=== PATIENT | male | born 1985 | race Caucasian/White ===

== ENCOUNTER 2018-10-30 00:44 | Inpatient (IN) | payer OTHER ==
[2018-10-30] VITALS (7 sets, daily range): BP systolic 105–144; BP diastolic 61–90
[~2018-10-30] VITALS: Ht 177.8 cm; Wt 108.9 kg
--- NOTE | 2018-10-30 01:30 | NUR ---
ER Nurse Note: Pt came from home c/o pain in the chest to the stomach area. Pt stated this started last night; unk onset. Pain feels sharp and stabbing, 8/10 pain. Pt currently moaning due to pain. S1 and S2 heard, lung sounds clear in all lobes. Pt a&ox4, VSS. ERMD at pt side[facility]
[2018-10-30] MEDS ORDERED: Morphine Sulfate 4mg/ml Inj (IV/IM USE ONLY) IVP ONE ×2 (01:45→02:45)
[2018-10-30] MEDS ORDERED: Pantoprazole Inj IV ONE (01:45)
--- NOTE | 2018-10-30 01:54 | Emergency Room Report ---
History of Present Illness General Chief Complaint: Chest Pain Source: Patient Present Illness HPI This is a 32-year-old male with no past medical history. He does have a family history of gallstone and his mom. He presents with epigastric and right upper quadrant pain. Onset for 3 and half hours. Pain is sharp. No radiation to his back. No fever chills. Nausea and vomiting. No diarrhea. Never had this problem before. Pain is 8 out of 10. Nothing made it better. Nothing made it worse. Allergies: Coded Allergies: No Known Allergies (Unverified , 10/30/18) Patient History Past Medical History: none, see triage record, old chart reviewed Past Surgical History: none Pertinent Family History: none Social History: Denies: smoking Immunizations: other Reviewed Nursing Documentation: PMH: Agreed; PSxH: Agreed Nursing Documentation-PMH Hx Hypertension: Yes Hx Diabetes: Yes Review of Systems Eye: Denies: eye pain, blurred vision ENT: Denies: ear pain, nose congestion, throat swelling Respiratory: Denies: cough, shortness of breath Cardiovascular: Denies: chest pain, palpitations Gastrointestinal: Reports: abdominal pain; Denies: diarrhea, nausea, vomiting Musculoskeletal: Denies: back pain, joint pain Skin: Denies: rash Neurological: Denies: headache, numbness Endocrine: Denies: increased thirst, increased urine Hematologic/Lymphatic: Denies: easy bruising All Other Systems: negative except mentioned in HPI Physical Exam Vital Signs Date Time Temp Pulse Resp B/P (MAP) Pulse Ox O2 Delivery O2 Flow Rate FiO2 10/30/18 00:59 97.9 82 22 139/89 98 Room Air vitals normal Sp02 EP Interpretation: reviewed, normal General Appearance: well appearing, no apparent distress, alert Head: normocephalic, atraumatic Eyes: bilateral eye PERRL, bilateral eye EOMI ENT: hearing grossly normal, normal pharynx Neck: full range of motion, supple, no meningismus Respiratory: chest non-tender, lungs clear, normal breath sounds Cardiovascular #1: regular rate, rhythm, no murmur Gastrointestinal: normal bowel sounds, non tender, no mass, no organomegaly, no bruit, non-distended, tenderness - Epigastric and right upper quadrant tenderness Musculoskeletal: back normal, gait/station normal, normal range of motion Psychiatric: mood/affect normal Skin: warm/dry Medical Decision Making Diagnostic Impression: Primary Impression: Cholelithiases Qualified Codes: K80.20 - Calculus of gallbladder without cholecystitis without obstruction Additional Impression: Intractable abdominal pain ER Course Patient presents with epigastric and right upper quadrant pain. CT showed multiple gallstones. No evidence of obstruction, kidney stones or appendicitis. Patient required multiple doses of IV pain medication. He still in some pain. Because of the intractable pain, will admit for surgical consultation. I discussed the case with Dr. Amaya who will admit. Lab Results Impression labs unremarkable EKG Diagnostic Results Rate: normal Rhythm: NSR ST Segments: no acute changes ASA given to the pt in ED: No Rhythm Strip Diag. Results EP Interpretation: yes Rate: 88 Rhythm: NSR, no PVC's, no ectopy CT/MRI/US Diagnostic Results CT/MRI/US Diagnostic Results : Imaging Test Ordered: CT abdomen and pelvis Impression Read by radiologist. Gallstones. Diverticulosis. Normal appendix. Last Vital Signs Date Time Temp Pulse Resp B/P (MAP) Pulse Ox O2 Delivery O2 Flow Rate FiO2 10/30/18 00:59 97.9 82 22 139/89 98 Room Air Status: improved Disposition: ADMITTED INPATIENT Condition: Serious Abram Buckley MD Oct 30, 2018 01:54
[2018-10-30 02:01] LABS: APPEARANCE,URINE CLEAR; BILIRUBIN, URINE NEGATIVE (NEGATIVE); GLUCOSE, URINE (UA) NEGATIVE (NEGATIVE); KETONES,URINE NEGATIVE (NEGATIVE); LEUKOCYTE ESTERASE ,URINE NEGATIVE (NEGATIVE); NITRITE,URINE NEGATIVE (NEGATIVE); PH,URINE 6 (4.5-8.0); PROTEIN,URINE NEGATIVE (NEGATIVE); UROBILINOGEN,URINE NORMAL MG/DL (0.0-1.0)
[2018-10-30 02:02] LABS: COLOR,URINE YELLOW
[2018-10-30 02:04] LABS: BASOPHILS % (AUTO) 0.9 % (0.0-2.0); EOSINOPHILS % (AUTO) 1.2 % (0.0-3.0); HEMATOCRIT 43.9 % (42.0-52.0); LYMPHOCYTES % (AUTO) 34.4 % (20.0-45.0); MEAN CORPUSCULAR VOLUME 87 FL (80-99); NEUTROPHILS % (AUTO) 57.4 % (45.0-75.0); PLATELET COUNT 234 K/UL (150-450); RED BLOOD COUNT 5.03 M/UL (4.70-6.10); RED CELL DISTRIBUTION WIDTH 10.2 % (11.6-14.8); WHITE BLOOD COUNT 9.3 K/UL (4.8-10.8)
[2018-10-30 02:21] LABS: ANION GAP 11 mmol/L (5-15); BLOOD UREA NITROGEN 21 mg/dL (7-18); CALCIUM 9.6 MG/DL (8.5-10.1); CARBON DIOXIDE 26 MMOL/L (21-32); CHLORIDE 100 MMOL/L (98-107); POTASSIUM 3.6 MMOL/L (3.5-5.1); SODIUM 137 MMOL/L (136-145)
[2018-10-30 02:28] LABS: ALANINE AMINOTRANSFERASE 34 U/L (12-78); ALBUMIN 4.1 G/DL (3.4-5.0); ALBUMIN/GLOBULIN RATIO 1.2 (1.0-2.7); ALKALINE PHOSPHATASE 46 U/L (46-116); ASPARTATE AMINO TRANSFERASE 13 U/L (15-37); BILIRUBIN,TOTAL 0.7 MG/DL (0.2-1.0)
--- NOTE | 2018-10-30 02:30 | NUR ---
ER Nurse Note: All orders completed per ERMD orders. Awaiting radiology and lab results. Pain meds given, tolerated well. No signs of distress, VSS. Will continue to [facility]
[2018-10-30] MEDS ORDERED: HYDROmorphone 1mg/ml Carpuject IVP ONE (03:15)
[2018-10-30] MEDS ORDERED: Ketorolac 30mg Inj IV ONE (03:15)
--- NOTE | 2018-10-30 04:09 | NUR ---
ED Nurse Note: covering pt for nurse lilli, pt on bed, complaining of 4/10 pain. pt stated the pain got better after the pain meds. pt friend on bedside. pt hooked on monitor with vitals sign within normAL limit. will continue to monitor.
--- NOTE | 2018-10-30 05:23 | NUR ---
ER Nurse Note: Report given to FARHAN Espinoza in [place] for continuity of care. Pt a&ox4, VSS, no signs of distress. Pt complains about mild pain but says it is tolerable currently. Pt left with all belongings.
[2018-10-30] MEDS ORDERED: ALPRAZolam 0.5mg tab ORAL PRN ×2 (06:15→07:15)
[2018-10-30] MEDS ORDERED: metFORMIN 500mg tab ORAL SCH (06:30)
[2018-10-30] MEDS ORDERED: METFORMIN HCL500 M1 ORAL (06:32)
[2018-10-30] MEDS ORDERED: ACTOS30 MG ORAL (06:32)
[2018-10-30] MEDS ORDERED: XANAX0.5 MG ORAL (06:32)
[2018-10-30] MEDS ORDERED: TRUVADA 200 MG1 EAC1 ORAL (06:32)
[2018-10-30] MEDS ORDERED: LOSARTAN POTAS100 MG ORAL (06:32)
--- NOTE | 2018-10-30 07:30 | NUR ---
NURSE NOTES: Received report from Julieta REAL. On rounds patient is awake alert and oriented x4, no s/s acute distress noted. Reporting abdominal pain, will medicate per order. LFA IV intact and asymptomatic. Side rails upx2, bed low and locked, call light in reach. Will continue to monitor.
[2018-10-30] MEDS ORDERED: Losartan 50mg tab ORAL SCH ×2 (09:00)
--- NOTE | 2018-10-30 09:28 | NUR ---
NURSE NOTES: Received hold parameters for Losartan from Dr. Amaya. Did not administer Losartan this morning due to parameters out of range, systolic BP <110. Order entered. Will continue to monitor.
[2018-10-30] MEDS: metFORMIN 500mg tab ORAL SCH ×2 (09:34→17:23)
[2018-10-30] MEDS: NovoLOG Insulin Flexpen SUBQ SCH ×3 (11:30→20:29)
--- NOTE | 2018-10-30 11:36 | Consultation ---
History of Present Illness General Date patient seen: Oct 30, 2018 Chief Complaint: Chest Pain Reason for Consultation: cholecytitis Present Illness HPI 32 year old otherwise healthy male presented to ED with complaints of acute onset epigastric abdominal pain. 8/10 sharp epigastric pain with radiation to back. +nausea +emesis. no fever or chills. was attempting to go to sleep when pain began. no prior episodes. in ED noted to have abd pain, labs okay, CT with cholelithiasis. surgery called to evaluate for cholecystitis. patient seen, chart reviewed, patient examined. states mildly better today. currently no n/v/f/c. pending ultrasound. Allergies: Coded Allergies: No Known Allergies (Unverified , 10/30/18) Medication History Scheduled Emtricitabine/Tenofovir 200-300MG* (Truvada 200-300MG*), 1 TAB ORAL DAILY, ( Reported) Losartan Potassium (Losartan Potassium), 100 MG ORAL DAILY, (Reported) Metformin Hcl* (Metformin Hcl*), 500 MG ORAL TWICE A DAY, (Reported) Pioglitazone Hcl* (Actos*), 30 MG ORAL DAILY, (Reported) Scheduled PRN Alprazolam* (Xanax*), 0.5 MG ORAL TID PRN for PRN Agitation/Anxiety, (Reported) Patient History History Provided By: Patient, Medical Record, PMD Healthcare decision maker Resuscitation status Advanced Directive on File Past Medical/Surgical History Past Medical/Surgical History: (1) Cholelithiases (2) Intractable abdominal pain Review of Systems Constitutional: Denies: no symptoms, see HPI, chills, sweats, fever, malaise, weakness, other Eye: Denies: no symptoms, see HPI, eye pain, blurred vision, tearing, double vision, nose pain, nose congestion, acuity changes, discharge, other ENT: Denies: no symptoms, see HPI, ear pain, ear discharge, nose pain, nose congestion, throat pain, throat swelling, mouth pain, hearing loss, nasal discharge, other Respiratory: Denies: no symptoms, see HPI, cough, orthopnea, shortness of breath, stridor, wheezing, PHILLIPS, sputum, other Cardiovascular: Denies: no symptoms, see HPI, chest pain, edema, palpitations, syncope, PND, other Gastrointestinal: Reports: abdominal pain, nausea, vomiting Genitourinary: Denies: no symptoms, see HPI, discharge, dysuria, frequency, hematuria, pain, retention, incontinence, urgency, vag bleed/dc, other Musculoskeletal: Denies: no symptoms, see HPI, back pain, gout, joint pain, joint swelling, muscle pain, muscle stiffness, other Skin: Denies: no symptoms, see HPI, rash, change in color, change in hair/nails , dryness, lesions, other Psychiatric: Denies: no symptoms, see HPI, prior hx, anxiety, depressed feelings, emotional problems, SI, HI, hallucinations, other Neurological: Denies: no symptoms, see HPI, headache, numbness, paresthesia, seizure, tingling, tremors, focal weakness, syncope, dizziness, other Endocrine: Denies: no symptoms, see HPI, excessive sweating, flushing, intolerance to temperature, increased thirst, increased urine, unexplained weight loss, other Hematologic/Lymphatic: Denies: no symptoms, see HPI, anemia, blood clots, easy bleeding, easy bruising, swollen glands, diathesis, other Physical Exam General Appearance: no apparent distress, alert Lines, tubes and drains: peripheral HEENT: mucous membranes moist, PERRL Neck: supple, normal inspection Respiratory/Chest: normal breath sounds, no respiratory distress, no accessory muscle use Cardiovascular/Chest: normal rate, regular rhythm Abdomen: normal bowel sounds, soft, no organomegaly, no mass, guarding, tender Extremities: normal inspection Skin Exam: warm/dry Neurologic: alert, oriented x 3 Last 24 Hour Vital Signs Date Time Temp Pulse Resp B/P (MAP) Pulse Ox O2 Delivery O2 Flow Rate FiO2 10/30/18 09:01 98.2 10/30/18 09:00 Room Air 10/30/18 08:00 98.2 83 18 105/61 (76) 98 10/30/18 06:06 Room Air 10/30/18 05:25 97.9 87 14 129/76 99 Room Air 10/30/18 05:21 97.9 87 14 129/76 99 Room Air 10/30/18 04:07 98.0 80 12 130/75 100 Room Air 10/30/18 03:49 97.8 10/30/18 03:48 97.8 10/30/18 03:48 97.8 10/30/18 02:32 97.8 10/30/18 01:30 98.0 84 24 144/90 98 Room Air 10/30/18 01:05 82 22 Room Air 10/30/18 00:59 97.9 82 22 139/89 98 Room Air Intake and Output 10/29/18 10/30/18 19:00 07:00 Intake Total 1000 ml Balance 1000 ml Intake IV Total 1000 ml # Voids 1 Laboratory Tests Test 10/30/18 01:40 White Blood Count 9.3 K/UL (4.8-10.8) Red Blood Count 5.03 M/UL (4.70-6.10) Hemoglobin 16.0 G/DL (14.2-18.0) Hematocrit 43.9 % (42.0-52.0) Mean Corpuscular Volume 87 FL (80-99) Mean Corpuscular Hemoglobin 31.8 PG (27.0-31.0) H Mean Corpuscular Hemoglobin Concent 36.3 G/DL (32.0-36.0) H Red Cell Distribution Width 10.2 % (11.6-14.8) L Platelet Count 234 K/UL (150-450) Mean Platelet Volume 6.3 FL (6.5-10.1) L Neutrophils (%) (Auto) 57.4 % (45.0-75.0) Lymphocytes (%) (Auto) 34.4 % (20.0-45.0) Monocytes (%) (Auto) 6.0 % (1.0-10.0) Eosinophils (%) (Auto) 1.2 % (0.0-3.0) Basophils (%) (Auto) 0.9 % (0.0-2.0) Urine Color Yellow Urine Appearance Clear Urine pH 6 (4.5-8.0) Urine Specific [place] 1.020 (1.005-1.035) Urine Protein Negative (NEGATIVE) Urine Glucose (UA) Negative (NEGATIVE) Urine Ketones Negative (NEGATIVE) Urine Blood Negative (NEGATIVE) Urine Nitrite Negative (NEGATIVE) Urine Bilirubin Negative (NEGATIVE) Urine Urobilinogen Normal MG/DL (0.0-1.0) Urine Leukocyte Esterase Negative (NEGATIVE) Sodium Level 137 MMOL/L (136-145) Potassium Level 3.6 MMOL/L (3.5-5.1) Chloride Level 100 MMOL/L (98-107) Carbon Dioxide Level 26 MMOL/L (21-32) Anion Gap 11 mmol/L (5-15) Blood Urea Nitrogen 21 mg/dL (7-18) H Creatinine 1.0 MG/DL (0.55-1.30) Estimat Glomerular Filtration Rate > 60 mL/min (>60) Glucose Level 184 MG/DL (74-106) H Hemoglobin A1c 6.0 % (4.3-6.0) Calcium Level 9.6 MG/DL (8.5-10.1) Total Bilirubin 0.7 MG/DL (0.2-1.0) Aspartate Amino Transf (AST/SGOT) 13 U/L (15-37) L Alanine Aminotransferase (ALT/SGPT) 34 U/L (12-78) Alkaline Phosphatase 46 U/L (46-116) Total Protein 7.4 G/DL (6.4-8.2) Albumin 4.1 G/DL (3.4-5.0) Globulin 3.3 g/dL Albumin/Globulin Ratio 1.2 (1.0-2.7) Lipase 152 U/L (73-393) Height (Feet): 5 Height (Inches): 10.00 Weight (Pounds): 235 Medications Current Medications Medications (Trade) Dose Ordered Sig/Nasreen Route PRN Reason Start Time Stop Time Status Last Admin Dose Admin Alprazolam (Xanax) 0.5 mg Q8H PRN ORAL PRN Agitation/Anxiety 10/30/18 07:15 11/06/18 07:14 Dextrose (Dextrose 50%) 25 ml Q30M PRN IV Hypoglycemia 10/30/18 07:15 11/29/18 07:14 Dextrose (Dextrose 50%) 50 ml Q30M PRN IV Hypoglycemia 10/30/18 07:15 11/29/18 07:14 Emtricitabine/ Tenofovir (Truvada 200/ 300mg) 1 tab DAILY ORAL 10/30/18 09:00 11/29/18 08:59 UNV Hydromorphone HCl (Dilaudid) 2 mg Q4H PRN IVP PAIN 4-10 10/30/18 07:15 11/06/18 07:14 10/30/18 08:31 Insulin Aspart (NovoLOG) BEFORE MEALS AND HS SUBQ 10/30/18 11:30 11/29/18 11:29 Losartan Potassium (Cozaar) 100 mg DAILY ORAL 10/31/18 09:00 11/29/18 08:59 Metformin HCl (Glucophage) 500 mg TWICE A DAY ORAL 10/30/18 09:00 11/29/18 08:59 10/30/18 09:34 Ondansetron HCl (Zofran) 4 mg Q6H PRN IVP Nausea & Vomiting 10/30/18 07:15 11/29/18 07:14 Pioglitazone HCl (Actos) 30 mg ACBREAKFAST ORAL 10/31/18 06:30 11/30/18 06:29 Sodium Chloride 1,000 ml @ 75 mls/hr [id number] IV 10/30/18 07:15 11/29/18 07:14 10/30/18 08:49 Assessment/Plan Problem List: (1) Acute cholecystitis Assessment & Plan: 32 year old male with cholecystitis. pain began last night and has not resolved since. better with pain meds. labs okay. afebrile, HD stable. CT noted Pending ultrasound. -npo -IV fluids -IV abx -US abd -discussed options with patient. if resolved soon can consider elective cholecystectomy. if not will proceed with cholecystectomy tomorrow thank you will follow with recs. ICD Codes: K81.0 - Acute cholecystitis SNOMED: [id number] Sawyer Armstrong Oct 30, 2018 11:36
--- NOTE | 2018-10-30 11:37 | Diagnostic Imaging Report ---
Indication: Abdominal pain for 3 days Technique: Spiral acquisitions obtained through the abdomen and pelvis. No oral contrast utilized, per emergency room physician request No IV contrast utilized, per referring physician request.. Multiplanar reconstructions were generated. Total dose length product 911.24 mGycm. CTDIvol(s) 17.05 mGy. Dose reduction achieved using automated exposure control Comparison: None Findings: The appendix is normal. There is colonic diverticulosis. No evidence of diverticulitis. No small bowel distention. No free or loculated intraperitoneal gas or fluid is evident. The distal esophagus, stomach, duodenum are unremarkable. Gallbladder contains gallstones. No gallbladder wall thickening. The lack of IV contrast limits assessment of the solid organs. The liver, pancreas, spleen, adrenals, kidneys are all unremarkable. No retroperitoneal or mesenteric mass or adenopathy. No pelvic mass or adenopathy. The included lung bases demonstrate a 3 mm subpleural nodule in the right middle lobe, image 8 series 5. Small subpleural opacities are also seen in the left costophrenic sulcus. The bones are unremarkable Impression: No acute abnormality Cholelithiasis Basilar pulmonary opacities. No further follow-up necessary there is no significant smoking history. Consider short interval follow-up CT at 6-12 months if there R risk factors for lung carcinoma Diverticulosis. No evidence of diverticulitis This agrees with the preliminary interpretation provided overnight by [facility] teleradiology service. The CT scanner at [facility] is accredited by the [employer] and the scans are performed using protocols designed to limit radiation exposure to as low as reasonably achievable to attain images of sufficient resolution adequate for diagnostic evaluation.
[2018-10-30] MEDS ORDERED: NovoLOG Insulin Flexpen SUBQ SCH (11:50)
--- NOTE | 2018-10-30 15:04 | NUR ---
NURSE NOTES: Abdominal ultrasound complete. Per order from MD, patient may now have clear liquid diet. Will continue to monitor.
--- NOTE | 2018-10-30 15:45 | History and Physical Report ---
DATE OF ADMISSION: 10/30/2018 HISTORY OF PRESENT ILLNESS: This is a 32-year-old male with an unremarkable past history. He states he lives in local area with his . He came to the hospital with right upper quadrant pain, this started midnight last night. He was seen and worked up in the ER. He had a complete workup done and all was negative except for finding of nonobstructive gallstones. His laboratories were normal. He was admitted to the hospital for pain control as he was writhing in pain on my arrival. PAST MEDICAL HISTORY: He has past history of diabetes mellitus. SURGERIES: None. HOME MEDICATIONS: Include Actos, Glucophage, Truvada, and Xanax. ALLERGIES: None reported. REVIEW OF SYSTEMS: Denies any headaches, hematemesis, melena, or hematochezia. PHYSICAL EXAMINATION: GENERAL: Reveals a 32-year-old male. VITAL SIGNS: Blood pressure is 105/60, heart rate , he is afebrile. HEENT: Unremarkable. LUNGS: Clear breath sounds bilaterally. ABDOMEN: Soft. NEUROLOGIC: Nonfocal. LABORATORY AND DIAGNOSTIC DATA: Lab testing shows normal CBC and BMP. Glucose 184. AST, ALT, and alkaline phosphatase are normal. Imaging studies per ER physician is notable for cholelithiasis. IMPRESSION: 1. Acute biliary colic. 2. Diabetes mellitus. DISCUSSION: Admit to the hospital. We will consult GI and General Surgery. Continue home medications. Start clear liquid diet. IV fluids. Pain control. SCDs. We will follow as frame stripper. Yordy Amaya M.D. DR: ERNA JOB#: [id number] CC:
--- NOTE | 2018-10-30 16:37 | Diagnostic Imaging Report ---
Indication: Abdominal pain Technique: Montalvo-scale and duplex images of the upper abdomen were obtained Comparison: Reference made to abdomen pelvis CT of earlier the same day Findings: Exam is somewhat limited due to excess bowel gas Gallbladder demonstrates stones within the neck. The gallbladder wall is thickened, measuring up to 5 mm thick. A small polyp is seen in the gallbladder fundus Sonographic Guallpa's sign is negative. Common bile duct measures 4 mm in diameter. No intrahepatic biliary ductal dilatation. Liver demonstrates equivocally increased echogenicity. Hypoechoic area adjacent to the gallbladder fossa may reflect an area of focal sparing. Portal vein and hepatic veins are patent. Pancreas is unremarkable. Spleen is upper limits normal in size, measuring up to 12.5 cm long axis dimension Left kidney measures 11.3 cm in length. Right kidney measures 11 cm length. Both kidneys demonstrate normal echogenicity. There is no hydronephrosis. No focal abnormality . Abdominal aorta is partially obscured by bowel gas, visualized portions are non-aneurysmal . Impression: Cholelithiasis. Thick gallbladder wall. Nonspecific, but could indicate acute or chronic cholecystitis. Consider nuclear medicine hepatobiliary scan if there is high clinical suspicion Small gallbladder fundal polyp Negative for dilated bile ducts Increased hepatic echogenicity. This suggests hepatocellular disease such as fatty change. However, recent CT scan demonstrates relatively normal hepatic attenuation indicating degree of fatty change is only minimal Hypoechoic area adjacent to the gallbladder fossa. Probably an area of focal sparing but likewise not visible on CT scan Limited visualization of the abdominal aorta
--- NOTE | 2018-10-30 16:55 | NUR ---
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 RATED PAIN 05/11 SI: GALLSTONES,BILIARY COLIC T. 97.8 HR 82 RR 22 B/P 139/89 [address] ABD/PEL= NO ACUTE PROCESS. CHOLELITHIASIS ABD US+ CHOLELITHIASIS IS: IV BOLUS NS X 1 LITER DILAUDID IV MORPHINE IV ZOFRAN IV PROTONIX IV ADMITTED TO MED/SURG MED/SURG STATUS DCP RETURN HOME
--- NOTE | 2018-10-30 19:31 | NUR ---
HAND-OFF: Report given to Anirudh REAL. Patient stable.
--- NOTE | 2018-10-30 20:10 | NUR ---
NURSE NOTES: Received patient awake in bed, able to verbalize needs, in mild pain, made aware of when next scheduled PRN pain medication is due, verbalized understanding. No acute signs of distress. IV site asymptomatic, dressing dry and intact, IVF running at 75ml/hr. Bed on lowest position, urinal within reach, call light within reach.
[2018-10-31] VITALS (18 sets, daily range): BP systolic 110–124; BP diastolic 62–101
[2018-10-31] MEDS: NovoLOG Insulin Flexpen SUBQ SCH ×4 (05:49→20:10)
--- NOTE | 2018-10-31 07:01 | NUR ---
HAND-OFF: Report given to FARHAN Moss. Addendum: 10/31/18 at 0704 by Anirudh Huff RN Patient asleep in bed, no s/s of acute distress.
--- NOTE | 2018-10-31 07:30 | NUR ---
NURSE NOTES: Received report from Anirudh REAL. On rounds patient is awake alert and oriented x4, in bed. SCD's in place. No s/s acute distress noted, patient reports pain is well managed at this time. IVF running per order, IV asymptomatic. Side rails upx2, bed low and locked, call light in reach. Will continue to monitor.
[2018-10-31 08:23] LABS: BASOPHILS % (AUTO) 0.6 % (0.0-2.0); HEMATOCRIT 42.7 % (42.0-52.0); HEMOGLOBIN 15.5 G/DL (14.2-18.0); LYMPHOCYTES % (AUTO) 21.1 % (20.0-45.0); MEAN CORPUSCULAR VOLUME 89 FL (80-99); MONOCYTES % (AUTO) 8.3 % (1.0-10.0); NEUTROPHILS % (AUTO) 69.1 % (45.0-75.0); PLATELET COUNT 200 K/UL (150-450); RED BLOOD COUNT 4.82 M/UL (4.70-6.10); RED CELL DISTRIBUTION WIDTH 10.6 % (11.6-14.8); WHITE BLOOD COUNT 9.8 K/UL (4.8-10.8)
[2018-10-31 09:10] LABS: ALANINE AMINOTRANSFERASE 33 U/L (12-78); ALBUMIN 3.5 G/DL (3.4-5.0); ALBUMIN/GLOBULIN RATIO 1.1 (1.0-2.7); ALKALINE PHOSPHATASE 52 U/L (46-116); ANION GAP 9 mmol/L (5-15); ASPARTATE AMINO TRANSFERASE 20 U/L (15-37); BLOOD UREA NITROGEN 14 mg/dL (7-18); CALCIUM 8.3 MG/DL (8.5-10.1); CARBON DIOXIDE 27 MMOL/L (21-32); CHLORIDE 103 MMOL/L (98-107); CREATININE 0.8 MG/DL (0.55-1.30); POTASSIUM 3.8 MMOL/L (3.5-5.1); SODIUM 139 MMOL/L (136-145)
[2018-10-31] MEDS: Losartan 50mg tab ORAL SCH (09:11)
[2018-10-31] MEDS: TRUVADA ORAL SCH (09:11)
[2018-10-31] MEDS: metFORMIN 500mg tab ORAL SCH ×2 (09:11→18:31)
--- NOTE | 2018-10-31 09:48 | Pulmonology Progress Note ---
Assessment/Plan Assessment/Plan 1. Acute biliary colic. 2. Diabetes mellitus. DISCUSSION: Will likely need cholecystectomy Will discuss with surgery Subjective Interval Events: Still having pain Constitutional: Reports: no symptoms HEENT: Repors: no symptoms Respiratory: Reports: no symptoms Cardiovascular: Reports: no symptoms Gastrointestinal/Abdominal: Reports: no symptoms Genitourinary: Reports: no symptoms Allergies: Coded Allergies: No Known Allergies (Unverified , 10/30/18) Objective Last 24 Hour Vital Signs Date Time Temp Pulse Resp B/P (MAP) Pulse Ox O2 Delivery O2 Flow Rate FiO2 10/31/18 09:11 124/84 10/31/18 09:00 Room Air 10/31/18 08:01 98.2 90 20 124/84 (97) 95 10/31/18 04:00 98.3 100 18 116/101 (106) 98 10/31/18 00:00 98.0 83 16 113/64 (80) 98 10/30/18 21:00 Room Air 10/30/18 20:00 98.7 84 21 134/72 (92) 98 10/30/18 19:21 99.0 10/30/18 16:00 99.0 90 18 121/70 (87) 96 10/30/18 12:00 98.1 86 17 118/70 (86) 98 Intake and Output 10/30/18 10/31/18 19:00 07:00 Intake Total 1585 ml 1325 ml Output Total 850 ml 800 ml Balance 735 ml 525 ml Intake Oral 760 ml 500 ml IV Total 825 ml 825 ml Output Urine Total 850 ml 800 ml # Voids 3 General Appearance: no acute distress HEENT: normocephalic Respiratory/Chest: chest wall non-tender, lungs clear Cardiovascular: normal peripheral pulses, normal rate Abdomen: normal bowel sounds Laboratory Tests 10/31/18 07:18: White Blood Count 9.8, Red Blood Count 4.82, Hemoglobin 15.5, Hematocrit 42.7, Mean Corpuscular Volume 89, Mean Corpuscular Hemoglobin 32.1H, Mean Corpuscular Hemoglobin Concent 36.2H, Red Cell Distribution Width 10.6L, Platelet Count 200 , Mean Platelet Volume 6.4L, Neutrophils (%) (Auto) 69.1, Lymphocytes (%) (Auto ) 21.1, Monocytes (%) (Auto) 8.3, Eosinophils (%) (Auto) 1.0, Basophils (%) ( Auto) 0.6, Sodium Level 139, Potassium Level 3.8, Chloride Level 103, Carbon Dioxide Level 27, Anion Gap 9, Blood Urea Nitrogen 14, Creatinine 0.8, Estimat Glomerular Filtration Rate > 60, Glucose Level 107H, Calcium Level 8.3L, Total Bilirubin 1.0, Aspartate Amino Transf (AST/SGOT) 20, Alanine Aminotransferase ( ALT/SGPT) 33, Alkaline Phosphatase 52, Total Protein 6.8, Albumin 3.5, Globulin 3.3, Albumin/Globulin Ratio 1.1 Current Medications Medications (Trade) Dose Ordered Sig/Nasreen Route PRN Reason Start Time Stop Time Status Last Admin Dose Admin Alprazolam (Xanax) 0.5 mg Q8H PRN ORAL PRN Agitation/Anxiety 10/30/18 07:15 11/06/18 07:14 Dextrose (Dextrose 50%) 25 ml Q30M PRN IV Hypoglycemia 10/30/18 07:15 11/29/18 07:14 Dextrose (Dextrose 50%) 50 ml Q30M PRN IV Hypoglycemia 10/30/18 07:15 11/29/18 07:14 Hydromorphone HCl (Dilaudid) 2 mg Q4H PRN IVP PAIN 4-10 10/30/18 07:15 11/06/18 07:14 10/31/18 05:53 Insulin Aspart (NovoLOG) BEFORE MEALS AND HS SUBQ 10/30/18 11:30 11/29/18 11:29 Losartan Potassium (Cozaar) 100 mg DAILY ORAL 10/31/18 09:00 11/29/18 08:59 10/31/18 09:11 Metformin HCl (Glucophage) 500 mg TWICE A DAY ORAL 10/30/18 09:00 11/29/18 08:59 10/31/18 09:11 Ondansetron HCl (Zofran) 4 mg Q6H PRN IVP Nausea & Vomiting 10/30/18 07:15 11/29/18 07:14 Patient Own Medication (Patient's Own Med) 1 ea DAILY ORAL 10/31/18 09:00 11/30/18 08:59 10/31/18 09:11 Pioglitazone HCl (Actos) 30 mg ACBREAKFAST ORAL 10/31/18 06:30 11/30/18 06:29 10/31/18 05:44 Sodium Chloride 1,000 ml @ 75 mls/hr [id number] IV 10/30/18 07:15 11/29/18 07:14 10/30/18 20:51 Yordy Amaya MD Oct 31, 2018 09:48
[2018-10-31] MEDS ORDERED: ceFAZolin sod 2 GM in D5W 110 ML IV ONE (10:45)
--- NOTE | 2018-10-31 10:45 | Pre-Procedure Note/Attestation ---
Pre-Procedure Note/Attestation Complete Prior to Procedure Planned Procedure: not applicable Procedure Narrative: laparoscopic cholecystectomy possible open Indications for Procedure Pre-Operative Diagnosis: acute cholecystitis Attestation I attest that I discussed the nature of the procedure; its benefits; risks and complications; and alternatives (and the risks and benefits of such alternatives ), prior to the procedure, with the patient (or the patient's legal sales representative malt liquors). I attest that, if there was a reasonable possibility of needing a blood transfusion, the patient (or the patient's legal sales representative malt liquors) was given the [facility] standardized written summary, pursuant to the Lenny Susan Blood Safety Act ([place] Health and Safety Code # 1645, as amended). I attest that I re-evaluated the patient just prior to the surgery and that there has been no change in the patient's H&P, except as documented below: Sawyer Armstrong Oct 31, 2018 10:45
[2018-10-31] MEDS ORDERED: ceFAZolin sod 2 GM in D5W 110 ML IV SCH (10:54)
--- NOTE | 2018-10-31 11:06 | NUR ---
NURSE NOTES: Spoke with Dr. Armstrong. MD is aware that patient has only been NPO since after 0900 this morning. MD ordered to hold Ancef for now and that RN will be updated on when to given Ancef when surgery time is clarified. Will continue to monitor.
[2018-10-31] MEDS ORDERED: ceFAZolin 2gm/D5W 50ml Premix IV SCH (12:34)
[2018-10-31] MEDS ORDERED: Bupivacaine w/Epi 0.5% 30ml Vial INJ ONE (12:43)
--- NOTE | 2018-10-31 12:45 | NUR ---
NURSE NOTES: Patient taken to surgery by fady Nicole. Lex given at 1238.
[2018-10-31] MEDS ORDERED: Iothalamate Meglumine 60% 30ML INJ ONE (12:58)
[2018-10-31] MEDS ORDERED: NS Irrig 1000ml ONE (13:00)
[2018-10-31] MEDS ORDERED: LR 1000ml ONE (13:00)
[2018-10-31] MEDS ORDERED: Propofol 1,000mg/ 100ml btl IV ONE (13:00)
[2018-10-31] MEDS ORDERED: Sterile Water Irrig 1000ml IRRIG ONE (13:00)
[2018-10-31] MEDS ORDERED: LR 1000ml 1,000 ML IVLG SCH (13:17)
[2018-10-31] MEDS ORDERED: fentaNYL 100 mcg/2 mL IV PRN (13:20)
--- NOTE | 2018-10-31 13:20 | Anethesia Preoperative Eval ---
Anesthesia Pre-op PMH/ROS General Date of Evaluation: Oct 31, 2018 Time of Evaluation: 13:17 Anesthesiologist: Tracee ASA Score: ASA 3 Mallampati Score Class I : Soft palate, uvula, fauces, pillars visible Class II: Soft palate, uvula, fauces visible Class III: Soft palate, base of uvula visible Class IV: Only hard plate visible Mallampati Classification: Class II Surgeon: Nathaniel Diagnosis: Abd Pain Surgical Procedure: Laparoscopic Cholecystectomy Anesthesia History: none Family History: no anesthesia problems Allergies: Coded Allergies: No Known Allergies (Unverified , 10/30/18) Medications: see eMAR Patient NPO?: Yes NPO Date: Oct 31, 2018 NPO Time: 914 Past Medical History Cardiovascular: Reports: HTN Pulmonary: Reports: JANEY Endocrine: Reports: DM Other: obesity Anesthesia Pre-op Phys. Exam Physician Exam Last Vital Signs Date Time Temp Pulse Resp B/P (MAP) Pulse Ox O2 Delivery O2 Flow Rate FiO2 10/31/18 11:48 98.3 92 20 110/62 (78) 97 10/31/18 09:00 Room Air Constitutional: NAD Neurologic: CN 2-12 intact Cardiovascular: RRR Respiratory: CTA Gastrointestinal: S/NT/ND Airway Exam Mallampati Score: Class II MO: full ROM: full Teeth: intact Anesthesia Pre-op A/P Labs Hematology Test 10/31/18 07:18 White Blood Count 9.8 K/UL (4.8-10.8) Red Blood Count 4.82 M/UL (4.70-6.10) Hemoglobin 15.5 G/DL (14.2-18.0) Hematocrit 42.7 % (42.0-52.0) Mean Corpuscular Volume 89 FL (80-99) Mean Corpuscular Hemoglobin 32.1 PG (27.0-31.0) H Mean Corpuscular Hemoglobin Concent 36.2 G/DL (32.0-36.0) H Red Cell Distribution Width 10.6 % (11.6-14.8) L Platelet Count 200 K/UL (150-450) Mean Platelet Volume 6.4 FL (6.5-10.1) L Neutrophils (%) (Auto) 69.1 % (45.0-75.0) Lymphocytes (%) (Auto) 21.1 % (20.0-45.0) Monocytes (%) (Auto) 8.3 % (1.0-10.0) Eosinophils (%) (Auto) 1.0 % (0.0-3.0) Basophils (%) (Auto) 0.6 % (0.0-2.0) Chemistry Test 10/31/18 07:18 Sodium Level 139 MMOL/L (136-145) Potassium Level 3.8 MMOL/L (3.5-5.1) Chloride Level 103 MMOL/L (98-107) Carbon Dioxide Level 27 MMOL/L (21-32) Anion Gap 9 mmol/L (5-15) Blood Urea Nitrogen 14 mg/dL (7-18) Creatinine 0.8 MG/DL (0.55-1.30) Estimat Glomerular Filtration Rate > 60 mL/min (>60) Glucose Level 107 MG/DL (74-106) H Calcium Level 8.3 MG/DL (8.5-10.1) L Total Bilirubin 1.0 MG/DL (0.2-1.0) Aspartate Amino Transf (AST/SGOT) 20 U/L (15-37) Alanine Aminotransferase (ALT/SGPT) 33 U/L (12-78) Alkaline Phosphatase 52 U/L (46-116) Total Protein 6.8 G/DL (6.4-8.2) Albumin 3.5 G/DL (3.4-5.0) Globulin 3.3 g/dL Albumin/Globulin Ratio 1.1 (1.0-2.7) Risk Assessment & Plan Assessment: ASA 3 Plan: GA, GlideScope Go Status Change Before Surgery: No Pre-Antibiotics Drug: On Floor Given Within 1 Hr of Incision: Yes Baltazar Easley MD Oct 31, 2018 13:20
[2018-10-31] MEDS ORDERED: oxyCODONE HCL/Acetaminophen 5/325mg ORAL PRN (13:21)
[2018-10-31] MEDS ORDERED: DiphenhydrAMINE 50mg/ml Inj IVP PRN (13:24)
[2018-10-31] MEDS ORDERED: Atropine Sulfate 0.4mg/ml inj IVP PRN (13:24)
[2018-10-31] MEDS ORDERED: Lidocaine 1% MPF 10mg/ml 5ml ONE (13:27)
[2018-10-31] MEDS ORDERED: Sodium Chloride 10ml vial INJ ONE (13:27)
[2018-10-31] MEDS ORDERED: fentaNYL 100 mcg/2 mL IV ONE (13:28)
[2018-10-31] MEDS ORDERED: Norco 5mg/325mg tab ORAL PRN (13:30)
[2018-10-31] MEDS ORDERED: Metoclopramide 10mg/2ml Inj IVP PRN (13:30)
[2018-10-31] MEDS ORDERED: LORazepam Inj 2mg/ml 1ml IV PRN (13:30)
[2018-10-31] MEDS ORDERED: Acetaminophen (Non formulary) 100 ML IV ONE (13:30)
[2018-10-31] MEDS ORDERED: HYDROcodone/Acetamin 7.5/325 tab ORAL PRN (13:30)
[2018-10-31] MEDS ORDERED: Midazolam 2mg/2ml Inj IVP PRN (13:30)
[2018-10-31] MEDS ORDERED: Ketorolac 30mg Inj IV PRN ×2 (13:30)
[2018-10-31] MEDS ORDERED: Meperidine 50mg/ml Inj(FOR RIGORS ONLY) IVP PRN (13:30)
[2018-10-31] MEDS ORDERED: Hydromorphone 0.5mg/0.5ml inj IVP PRN ×2 (13:30→15:30)
--- NOTE | 2018-10-31 13:48 | Immediate Post-Op Evaluation ---
Immediate Post-Op Evalulation Immediate Post-Op Evalulation Procedure: Laparoscopic Cholecystectomy Date of Evaluation: Oct 31, 2018 Time of Evaluation: 14:50 IV Fluids: 800 NS Blood Products: 0 Estimated Blood Loss: 20 Urinary Output: 0 Blood Pressure Systolic: 120 Blood Pressure Diastolic: 70 Pulse Rate: 92 Respiratory Rate: 16 O2 Sat by Pulse Oximetry: 94 Temperature (Fahrenheit): 98 Pain Score (1-10): 2 Nausea: No Vomiting: No Complications 0 Patient Status: awake, reacts, patent, extubated, none Hydration Status: adequate Drug: On Floor Given Within 1 Hr of Incision: Yes Baltazar Easley MD Oct 31, 2018 13:48
[2018-10-31] MEDS ORDERED: Neostigmine 1mg/ml 10ml Inj ONE (14:12)
[2018-10-31] MEDS ORDERED: Glycopyrrolate 0.2mg/ml 1ml Vial ONE (14:12)
[2018-10-31] MEDS ORDERED: Naloxone 0.4mg/ml Inj ONE (14:20)
--- NOTE | 2018-10-31 15:18 | Brief Operative Note ---
Immediate Post Operative Note Operative Note Pre-op Diagnosis: acute cholecystitis Procedure: lap jing Post-op Diagnosis: same as pre-op Surgeon: malathi Anesthesiologist: akbar Anesthesia: general, local Specimen: yes Complications: none Condition: stable Fluids: see records Estimated Blood Loss: minimal Drains: none Implant(s) used?: No Sawyer Armstrong Oct 31, 2018 15:18
[2018-10-31] MEDS ORDERED: Milk of Magnesia 30ml Ud ORAL PRN (15:30)
[2018-10-31] MEDS ORDERED: HYDROcodone/Acetamin 10/325 tab ORAL PRN (15:30)
[2018-10-31] MEDS ORDERED: HYDROmorphone 1mg/ml Carpuject IVP PRN (15:30)
--- NOTE | 2018-10-31 16:45 | NUR ---
NURSE NOTES: Patient returned from surgery at 1630. Report received from Angelina REAL. No s/s acute distress on arrival. SCD's in place, patient on 3L NC. IV asymptomatic. Patient is asleep, but arousable to name. Reporting pain in abdomen. 4 laparoscopic sites with dermabond and steri strips assessed clean and dry with no bleeding or other drainage noted from sites. Side rails upx3, bed low and locked, call light in reach. Will continue to monitor.
--- NOTE | 2018-10-31 16:58 | NUR ---
NURSE NOTES: Insulin held due to patient not yet tolerating PO intake. Patient is still drowsy from surgery and unable to take in PO fluid/food at this time. BS 114. Will continue to monitor.
--- NOTE | 2018-10-31 17:45 | NUR ---
NURSE NOTES: Patient now tolerating PO intake well, not reporting any nausea or emesis. IV converted to saline lock per order and IVF d/c. Will continue to monitor.
--- NOTE | 2018-10-31 17:45 | Operative Note - Dictated ---
DATE OF OPERATION: 10/31/2018 PREOPERATIVE DIAGNOSIS: Acute cholecystitis. POSTOPERATIVE DIAGNOSIS: Acute cholecystitis. OPERATION PERFORMED: Laparoscopic cholecystectomy. ATTENDING SURGEON: Sawyer Armstrong M.D. DISABILITY REPRESENTATIVE: None. ANESTHESIOLOGIST: Baltazar Easley M.D. ANESTHESIA: General FOREST PATHOLOGY TEACHER. ESTIMATED BLOOD LOSS: Minimal. IV FLUIDS: Please see anesthesia records. COMPLICATIONS: None. DRAINS: None. SPECIMENS: Gallbladder and stones sent to pathology for review. WOUND CLASSIFICATION: Class III. ANTIBIOTICS: The patient given 2 g of Ancef IV one hour prior to cut time. COUNTS: Sponge and needle count correct x2. INDICATIONS FOR PROCEDURE: This is a 32-year-old male, who presented to the emergency department of [facility] complaining of worsening acute onset epigastric abdominal pain, which was in epigastric with some radiation to the back and as well as right upper quadrant. CT scan identified cholelithiasis with possible cholecystitis. Ultrasound performed identified thickened gallbladder wall consistent with cholecystitis. The patient was admitted for observation and for monitoring, at which time the pain persisted over 24 hours and he was persistently tender in the right upper quadrant. In discussion with the patient, clinically and radiologically consistent with acute cholecystitis. It was not improving with medical management and therefore surgery was indicated and recommended. Discussion was made with the patient regarding further testing including nuclear medicine examinations. The patient expressed desire not to proceed with any further testing that would include any radiation. Surgery was indicated and recommended. Risks, benefits, and alternatives were discussed with the patient in detail, expressed understanding and consented to surgery. OPERATIVE NOTE: The patient was taken to the operating room and placed on the operating table in supine position bilateral arms out. All bony prominences well padded. SCDs were placed. No Gan catheter was inserted given the patient voided prior to entering the operating room. The patient was given 2 g Ancef IV one hour prior to cut time. Preoperative time-out was taken identifying the patient, procedure, operative staff, and surgical staff. General anesthesia was induced. The patient was intubated. The abdomen was clipped, prepped, and draped in standard surgical fashion. A local anesthetic was infiltrated to all skin incisions and port sites throughout the procedure for the patient's comfort. An infraumbilical incision was made using a fresh #11 scalpel. Incision was carried down to the fascia, which was elevated and incised. Entry into the abdomen was obtained using the open Lyudmila technique without complication. A 12 mm Lyudmila trocar was inserted and the abdomen was insufflated to 12 to 15 mmHg. The patient tolerated the insufflation well. Laparoscope was inserted and the abdomen was inspected. No injury from initial trocar placement identified. There was some omental inflammatory adhesions in right upper quadrant toward the gallbladder. The patient was placed in reverse Trendelenburg with left side down. Secondary trocars were placed under direct visualization beginning with an epigastric right xiphoid 12 mm port followed by two 5 mm right subcostal ports. The omental adhesions to the gallbladder were gently dissected down and dome of the gallbladder was identified, and the gallbladder was noted to be thickened and inflamed with wall edema. The dome of the gallbladder was grasped using most lateral port and retracted over the liver. The infundibulum which had a fair amount of inflammatory edema was identified and the peritoneal lining was gently dissected out and infundibulum noted and grasped and retracted towards the right lower quadrant. With gentle dissection, the critical view was obtained identifying both the cystic artery and duct. Once critical view was obtained, the cystic artery was doubly clipped and divided. Pulsation was identified from the stump. Following this, the only structure entering into the gallbladder infundibulum was the small cystic duct. The cystic duct was doubly clipped and divided. Following this, the gallbladder was taken off its liver attachments using electrocautery. Gallbladder was placed in endoscopic retrieval bag and removed from the abdomen using the epigastric subxiphoid port. The hemostasis was obtained from the liver bed using electrocautery. Both artery and duct clips were identified and the procedure noted to be satisfactory without leakage of bile or bleeding. A Surgicel was placed in the gallbladder fossa. At this time, we began the conclusion of the procedure by removal of secondary trocar sites followed by umbilical trocar site after the abdomen was desufflated. The subxiphoid and the infraumbilical port site fascia were closed using [id number] #0 Vicryl sutures. The remaining skin incisions were all cleansed and reapproximated using 4-0 Monocryl subcuticular interrupted sutures. Skin glue and Steri-Strips were placed. The patient tolerated the procedure well, was extubated and taken to postanesthetic care unit in stable condition. Sawyer Armstrong M.D. DR: SARI JOB#: [id number] CC:
--- NOTE | 2018-10-31 17:48 | Cardiology Report ---
APPROVED REPORT EKG Measurement Heart [id number] Normal sinus rhythm Normal ECG
--- NOTE | 2018-10-31 18:31 | General Progress Note ---
Assessment/Plan Assessment/Plan GI CONSULT Dictated Thank you Lesly Cooper MD Subjective Allergies: Coded Allergies: No Known Allergies (Unverified , 10/30/18) Objective Last 24 Hour Vital Signs Date Time Temp Pulse Resp B/P (MAP) Pulse Ox O2 Delivery O2 Flow Rate FiO2 10/31/18 16:15 97.8 98 18 117/67 98 Nasal Cannula 3 99 10/31/18 16:00 97 15 121/64 96 Nasal Cannula 3 97 10/31/18 15:50 98 18 118/66 97 Nasal Cannula 3 99 10/31/18 15:45 96 15 122/72 97 Nasal Cannula 3 97 10/31/18 15:30 100 19 115/71 97 Nasal Cannula 3 96 10/31/18 15:20 98 15 119/73 97 Nasal Cannula 3 97 10/31/18 15:00 101 20 118/79 97 Nasal Cannula 3 96 10/31/18 14:50 99 17 121/76 97 Simple Mask 6 99 10/31/18 14:39 98.0 90 16 120/70 95 Simple Mask 6 90 10/31/18 14:37 92 16 94 10/31/18 11:48 98.3 92 20 110/62 (78) 97 10/31/18 11:48 98.3 10/31/18 09:11 124/84 10/31/18 09:00 Room Air 10/31/18 08:01 98.2 90 20 124/84 (97) 95 10/31/18 04:00 98.3 100 18 116/101 (106) 98 10/31/18 00:00 98.0 83 16 113/64 (80) 98 10/30/18 21:00 Room Air 10/30/18 20:00 98.7 84 21 134/72 (92) 98 Intake and Output 10/30/18 10/31/18 19:00 07:00 Intake Total 1585 ml 1325 ml Output Total 850 ml 800 ml Balance 735 ml 525 ml Intake Oral 760 ml 500 ml IV Total 825 ml 825 ml Output Urine Total 850 ml 800 ml # Voids 3 Laboratory Tests 10/31/18 07:18: White Blood Count 9.8, Red Blood Count 4.82, Hemoglobin 15.5, Hematocrit 42.7, Mean Corpuscular Volume 89, Mean Corpuscular Hemoglobin 32.1H, Mean Corpuscular Hemoglobin Concent 36.2H, Red Cell Distribution Width 10.6L, Platelet Count 200 , Mean Platelet Volume 6.4L, Neutrophils (%) (Auto) 69.1, Lymphocytes (%) (Auto ) 21.1, Monocytes (%) (Auto) 8.3, Eosinophils (%) (Auto) 1.0, Basophils (%) ( Auto) 0.6, Sodium Level 139, Potassium Level 3.8, Chloride Level 103, Carbon Dioxide Level 27, Anion Gap 9, Blood Urea Nitrogen 14, Creatinine 0.8, Estimat Glomerular Filtration Rate > 60, Glucose Level 107H, Calcium Level 8.3L, Total Bilirubin 1.0, Aspartate Amino Transf (AST/SGOT) 20, Alanine Aminotransferase ( ALT/SGPT) 33, Alkaline Phosphatase 52, Total Protein 6.8, Albumin 3.5, Globulin 3.3, Albumin/Globulin Ratio 1.1 Height (Feet): 5 Height (Inches): 10.00 Weight (Pounds): 240 Frida Cooper MD Oct 31, 2018 18:31
[2018-10-31] MEDS: Docusate 100mg cap ORAL SCH (18:32)
--- NOTE | 2018-10-31 19:18 | NUR ---
HAND-OFF: Report given to Lore REAL. Patient in stable condition.
--- NOTE | 2018-10-31 20:00 | NUR ---
NURSE NOTES: Patient received in bed, awake and alert. IV is intact and patent. Urinal and personal belongings within easy access. Pt c/o pain, aware of next pain medication due. Call light within reach, will continue plan of care.
[2018-10-31] MEDS: ceFAZolin 2gm/50ml Premix 50 ML IV SCH (20:03)
--- NOTE | 2018-10-31 22:00 | Consultation ---
DATE OF CONSULTATION: 10/31/2018 GASTROENTEROLOGY CONSULTATION: CONSULTING PHYSICIAN: Frida Cooper M.D. REFERRING PHYSICIAN: Yordy Amaya M.D. CHIEF COMPLAINT: I was asked to see this patient by Dr. Yordy Amaya for evaluation of abdominal pain and gallbladder issues. HISTORY OF PRESENT ILLNESS: The patient is a pleasant 32-year-old white man, who was in his usual state of health until he came to the hospital emergency room complaining of acute onset of epigastric abdominal pain. This was sharp and radiating to his back. He has had some nausea and some vomiting. He does not give any previous history of fatty food intolerance. He has no other GI symptomatology, although he does have a history of type 2 diabetes for which he has been treated. His CT scan evaluation in the emergency room showed gallstones and subsequently he was taken to the operating room today where an inflamed gallbladder was identified and removed. An abdominal ultrasound preoperatively also showed a thick gallbladder wall. The patient now complains of mainly incisional abdominal pain. PAST MEDICAL HISTORY: History of type 2 diabetes mellitus, on oral medications; history of hypertension, on medications. FAMILY HISTORY: Noncontributory. PAST SURGICAL HISTORY: Other than the 1 done today, none. ALLERGIES: None. REVIEW OF SYSTEMS: Otherwise negative. PHYSICAL EXAMINATION: GENERAL: A pleasant white man, seen in his room. HEENT: Normocephalic and atraumatic. Sclerae anicteric. Oropharynx clear. NECK: Supple. CHEST: Clear to auscultation. CARDIOVASCULAR: Revealed a regular rate. ABDOMEN: Soft with surgical scar, which was appropriate. EXTREMITIES: Revealed no edema. LABORATORY DATA: Noted. ASSESSMENT: This patient presented with acute abdominal pain due to acute cholecystitis. He is now status post cholecystectomy and he is likely to recover uneventfully. His abdominal exam will be followed closely and his diet can be advanced once cleared by the surgical staff. Wound care instructions and showering will be deferred to the surgical staff. RECOMMENDATIONS: 1. Follow laboratory parameters and exam. 2. Out of bed. 3. Clear liquid diet per Surgery. 4. We will follow tomorrow. Thank you for asking me to participate in the care of this patient. Frida Cooper M.D. DR: ALICIA JOB#: [id number] CC: CHATO
[2018-11-01] VITALS: BP 111/77
--- NOTE | 2018-11-01 00:50 | NUR ---
NURSE NOTES: Patient offered oral pain medication when patient asked for pain medication. Patient preferred to have the IV pain medication for his severe pain 05/11. Educated patient regarding weaning off IV medication in order to prepare him to be discharged with oral pain medication. Patient verbalized understanding and stated he will start with oral medication in AM, but insist to get IV medication tonight.
[2018-11-01 04:00] VITALS: BP 113/71
[2018-11-01] MEDS: ceFAZolin 2gm/50ml Premix 50 ML IV SCH (04:11)
[2018-11-01] MEDS: NovoLOG Insulin Flexpen SUBQ SCH (05:58)
--- NOTE | 2018-11-01 07:13 | NUR ---
HAND-OFF: Report given to Sandra Rojas RN.
--- NOTE | 2018-11-01 07:24 | 48 Hour Post Anesthesia Eval ---
Post Anesthesia Evaluation Procedure: Laparoscopic Cholecystectomy Date of Evaluation: Nov 01, 2018 Airway: patent Nausea: No Vomiting: No Pain Intensity: 4 Hydration Status: adequate Cardiopulmonary Status: at baseline Mental Status/LOC: patient returned to baseline Post-Anesthesia Complications: 0 Follow-up care needed: N/A - further care as per primary team Bijal Caruso MD Nov 01, 2018 07:24
--- NOTE | 2018-11-01 07:30 | NUR ---
NURSE NOTES: Pt in bed a/o x 4. Pt c/o abd pain 7/10, worse with movement. Abdominal sounds hypoactive lower bilateral quadrants. Bilateral upper quadrants normoactive. IS at bedside, pt encouraged to use q hour. 4 abd lap sites covered with dermabond and tegaderm, areas D/C/I. Discussed with patient pain management plan. Pt left in bed in low position, call light within reach, bed locked. Will continue to monitor.
[2018-11-01 08:00] VITALS: BP 133/83
[2018-11-01] MEDS: Losartan 50mg tab ORAL SCH (08:42)
[2018-11-01] MEDS: metFORMIN 500mg tab ORAL SCH (08:42)
[2018-11-01] MEDS: Docusate 100mg cap ORAL SCH (08:43)
--- NOTE | 2018-11-01 09:23 | General Progress Note ---
Assessment/Plan Assessment/Plan Assessment - Cholelithiasis - acute Jing - s/p lap jing Recommendations - post op care - po diet - wound care - OOB Subjective Allergies: Coded Allergies: No Known Allergies (Unverified , 10/30/18) Subjective Feels better less wound pain tolerating PO Objective Last 24 Hour Vital Signs Date Time Temp Pulse Resp B/P (MAP) Pulse Ox O2 Delivery O2 Flow Rate FiO2 11/01/18 08:42 133/83 11/01/18 08:00 99.6 110 20 133/83 (100) 93 11/01/18 04:47 97.9 11/01/18 04:00 98.1 99 18 113/71 (85) 95 11/01/18 00:00 97.9 90 18 111/77 (88) 97 10/31/18 21:00 Room Air 10/31/18 20:00 98.3 88 18 121/77 (92) 96 10/31/18 19:04 98.7 10/31/18 18:30 98.7 96 18 116/78 (91) 93 10/31/18 17:30 98.5 95 20 112/70 (84) 95 10/31/18 17:00 98.6 96 18 112/70 (84) 96 10/31/18 16:30 99.1 102 18 115/73 (87) 94 10/31/18 16:15 97.8 98 18 117/67 98 Nasal Cannula 3 99 10/31/18 16:00 97 15 121/64 96 Nasal Cannula 3 97 10/31/18 15:50 98 18 118/66 97 Nasal Cannula 3 99 10/31/18 15:45 96 15 122/72 97 Nasal Cannula 3 97 10/31/18 15:30 100 19 115/71 97 Nasal Cannula 3 96 10/31/18 15:20 98 15 119/73 97 Nasal Cannula 3 97 10/31/18 15:00 101 20 118/79 97 Nasal Cannula 3 96 10/31/18 14:50 99 17 121/76 97 Simple Mask 6 99 10/31/18 14:39 98.0 90 16 120/70 95 Simple Mask 6 90 10/31/18 14:37 92 16 94 10/31/18 11:48 98.3 92 20 110/62 (78) 97 10/31/18 11:48 98.3 Intake and Output 1/30/19 1/31/19 19:00 07:00 Intake Total 1310 ml 580 ml Output Total 1400 ml 1550 ml Balance -90 ml -970 ml Intake Oral 460 ml 480 ml IV Total 850 ml 100 ml Output Urine Total 1400 ml 1550 ml Height (Feet): 5 Height (Inches): 10.00 Weight (Pounds): 240 Objective WDWN WM NCAT supple CTA RRR abd soft ND, wounds OK No edema Frida Cooper MD Nov 01, 2018 09:23
[2018-11-01] MEDS: TRUVADA ORAL SCH (09:33)
--- NOTE | 2018-11-01 09:44 | Pulmonology Progress Note ---
Assessment/Plan Assessment/Plan 1. Acute biliary colic. 2. Diabetes mellitus. DISCUSSION: S/p cholecystectomy DC home if cleared by surgery Subjective Interval Events: POD #1 s/p jing Constitutional: Reports: no symptoms HEENT: Repors: no symptoms Respiratory: Reports: no symptoms Cardiovascular: Reports: no symptoms Gastrointestinal/Abdominal: Reports: no symptoms Genitourinary: Reports: no symptoms Neurologic: Reports: no symptoms Allergies: Coded Allergies: No Known Allergies (Unverified , 10/30/18) Objective Last 24 Hour Vital Signs Date Time Temp Pulse Resp B/P (MAP) Pulse Ox O2 Delivery O2 Flow Rate FiO2 11/01/18 09:13 99.6 11/01/18 08:42 133/83 11/01/18 08:00 99.6 110 20 133/83 (100) 93 11/01/18 04:47 97.9 11/01/18 04:00 98.1 99 18 113/71 (85) 95 11/01/18 00:00 97.9 90 18 111/77 (88) 97 10/31/18 21:00 Room Air 10/31/18 20:00 98.3 88 18 121/77 (92) 96 10/31/18 19:04 98.7 10/31/18 18:30 98.7 96 18 116/78 (91) 93 10/31/18 17:30 98.5 95 20 112/70 (84) 95 10/31/18 17:00 98.6 96 18 112/70 (84) 96 10/31/18 16:30 99.1 102 18 115/73 (87) 94 10/31/18 16:15 97.8 98 18 117/67 98 Nasal Cannula 3 99 10/31/18 16:00 97 15 121/64 96 Nasal Cannula 3 97 10/31/18 15:50 98 18 118/66 97 Nasal Cannula 3 99 10/31/18 15:45 96 15 122/72 97 Nasal Cannula 3 97 10/31/18 15:30 100 19 115/71 97 Nasal Cannula 3 96 10/31/18 15:20 98 15 119/73 97 Nasal Cannula 3 97 10/31/18 15:00 101 20 118/79 97 Nasal Cannula 3 96 10/31/18 14:50 99 17 121/76 97 Simple Mask 6 99 10/31/18 14:39 98.0 90 16 120/70 95 Simple Mask 6 90 10/31/18 14:37 92 16 94 10/31/18 11:48 98.3 92 20 110/62 (78) 97 Intake and Output 10/31/18 11/01/18 19:00 07:00 Intake Total 1310 ml 580 ml Output Total 1400 ml 1550 ml Balance -90 ml -970 ml Intake Oral 460 ml 480 ml IV Total 850 ml 100 ml Output Urine Total 1400 ml 1550 ml General Appearance: no acute distress HEENT: normocephalic Respiratory/Chest: chest wall non-tender, lungs clear Cardiovascular: normal peripheral pulses, normal rate Abdomen: soft, non tender Current Medications Medications (Trade) Dose Ordered Sig/Nasreen Route PRN Reason Start Time Stop Time Status Last Admin Dose Admin Acetaminophen (Tylenol) 650 mg Q6H PRN ORAL Mild Pain (Pain Scale 1-3) 10/31/18 15:30 11/30/18 15:29 Acetaminophen/ Hydrocodone Bitart ([place] 10/325) 1 tab Q4H PRN ORAL Severe Pain (Pain Scale 7-10) 10/31/18 15:30 11/07/18 15:29 10/31/18 18:34 Al Hydroxide/Mg Hydroxide (Mylanta) 15 ml Q6H PRN ORAL DYSPEPSIA 10/31/18 15:30 11/30/18 15:29 Alprazolam (Xanax) 0.5 mg Q8H PRN ORAL PRN Agitation/Anxiety 10/30/18 07:15 11/06/18 07:14 Dextrose (Dextrose 50%) 25 ml Q30M PRN IV Hypoglycemia 10/30/18 07:15 11/29/18 07:14 Dextrose (Dextrose 50%) 50 ml Q30M PRN IV Hypoglycemia 10/30/18 07:15 11/29/18 07:14 Diphenhydramine HCl (Benadryl) 25 mg Q8H PRN ORAL Itching/Pruritis 10/31/18 15:30 11/30/18 15:29 Docusate Sodium (Colace) 100 mg TWICE A DAY ORAL 10/31/18 18:00 11/30/18 17:59 11/01/18 08:43 Hydromorphone HCl (Dilaudid) 0.5 mg Q3H PRN IVP Pain Score 1-3 10/31/18 15:30 11/07/18 15:29 Hydromorphone HCl (Dilaudid) 1 mg Q3H PRN IVP pain score 4-6 10/31/18 15:30 11/07/18 15:29 Hydromorphone HCl (Dilaudid) 2 mg Q3H PRN IVP pain score 7-10 10/31/18 15:30 11/07/18 15:29 11/01/18 04:17 Hydromorphone HCl (Dilaudid) 2 mg Q4H PRN IVP PAIN 4-10 10/30/18 07:15 11/06/18 07:14 11/01/18 08:43 Insulin Aspart (NovoLOG) BEFORE MEALS AND HS SUBQ 10/30/18 11:30 11/29/18 11:29 10/31/18 20:10 Losartan Potassium (Cozaar) 100 mg DAILY ORAL 10/31/18 09:00 11/29/18 08:59 11/01/18 08:42 Magnesium Hydroxide (Mom) 30 ml BIDPRN PRN ORAL Constipation 10/31/18 15:30 11/30/18 15:29 Metformin HCl (Glucophage) 500 mg TWICE A DAY ORAL 10/30/18 09:00 11/29/18 08:59 11/01/18 08:42 Ondansetron HCl (Zofran) 4 mg Q6H PRN IVP Nausea & Vomiting 10/30/18 07:15 11/29/18 07:14 Ondansetron HCl (Zofran) 4 mg Q6H PRN IVP Nausea & Vomiting 10/31/18 15:30 11/30/18 15:29 Patient Own Medication (Patient's Own Med) 1 ea DAILY ORAL 10/31/18 09:00 11/30/18 08:59 11/01/18 09:33 Pioglitazone HCl (Actos) 30 mg ACBREAKFAST ORAL 10/31/18 06:30 11/30/18 06:29 11/01/18 05:56 Temazepam (Restoril) 7.5 mg DAILYPRN PRN ORAL Insomnia 10/31/18 15:30 11/07/18 15:29 Yordy Amaya MD Nov 01, 2018 09:44
[2018-11-01] MEDS ORDERED: HYDROcodone/Acetamin 10/325 ORAL (09:45)
--- NOTE | 2018-11-01 09:49 | NUR ---
*-* INSURANCE *-* ALL CLINICALS, REVIEW AND INTERQUAL FAXED TO: REVIEW CO: [facility]#: [id number] KAELA: FRAN Mayorga#: [phone] PLEASE FAX CLINICALS TO ABOVE #
[2018-11-01] MEDS ORDERED: PERCOCET 10-321 EACH ORAL (11:32)
[2018-11-01 11:57] VITALS: BP 128/84
--- NOTE | 2018-11-01 12:20 | NUR ---
NURSE NOTES: Pt left in stable condition accompanied by . Pt left with all belongings. IV to LAC removed, applied pressure, no active bleeding. Pt left with instructions and hand delivered to pt Percocet Rx. Explained signs/sxs to report, and to call Dr. Armstrong in one week to see how he is doing. Pt and verbalized understanding. Pt taken down to hospital entrance via wheelchair.
--- NOTE | 2018-11-01 13:49 | NUR ---
P.T NOTE: P.T EVALUATION COMPLETED. PATIENT IS INDEPENDENT WITH ADL/FUNCTIONAL MOBILITIES AND GAIT/LOCOMOTION. PATIENT'S CURRENT FUNCTIONAL STATUS DOES NO REQUIRE SKILLED P.T SERVICE. PATIENT HOWEVER ENCOURAGED OOB ACTIVITIES I.E AMBULATION TOLERATED FOLLOWING GALL BLADDER PROCEDURE. PATIENT VERBALIZED UNDERSTANDING. DC P.T SERVICES. THANK YOU FOR THIS REFERRAL. Addendum: 11/01/18 at 1349 by INGE BARBOZA PT Amended: Links added.
--- NOTE | 2018-11-02 14:04 | Discharge Summary ---
Discharge Summary Discharge Summary _ DATE OF ADMISSION: 10/30/2018 DATE OF DISCHARGE: 11/01/2018 DISCHARGED BY: Dr. Amy Amaya CONSULTANTS: Dr. Frida Armstrong BRIEF HOSPITAL COURSE: Patient is a 33-year-old male, with history of diabetes, who presented to the hospital with right upper quadrant pain that started the night prior. Pain was described to be sharp, 8 out of 10 in intensity. No radiation to the back. There were no fever or chills. No nausea or vomiting. No diarrhea. Nothing made it better. Nothing made it worse. On evaluation at ED, vital signs were stable. Blood work did not show any leukocytosis, hemoglobin hematocrit stable. Electrolytes were normal. LFTs were normal. Lipase normal. CT scan of the abdomen and pelvis showed multiple gallstones. There was no obstruction, no evidence of diverticulitis, appendix normal. There was findings of basilar pulmonary opacities. He required multiple doses of pain medication. Because of intractable pain patient was admitted for surgical consultation. He was placed on n.p.o. He was given IV fluids. He was given pain management. GI and surgical evaluation were done. Options were discussed with patient. If symptoms resolve soon, patient may consider to have elective cholecystectomy ; if not patient will eventually need cholecystectomy. Abdominal ultrasound showed cholelithiasis with gallbladder wall consistent with acute cholecystitis. He was admitted for observation and monitoring, however pain was persistent. Patient clinically and radiologically presented with acute cholecystitis. Surgery was indicated. On 10/31/2018, he underwent laparoscopic cholecystectomy. Intraoperatively, the gallbladder was noted to be thickened and inflamed with wall edema. He was started on Ancef pre-operatively. He tolerated procedure well. Following day, diet was advanced. Patient was tolerating diet and abdomen was soft, and nondistended. Patient was cleared for discharge home. FINAL DIAGNOSES: Acute cholecystitis Cholelithiasis Acute biliary colic Diabetes mellitus Status post cholecystectomy DISPOSITION: Patient was discharged home. DISCHARGE MEDICATIONS: Refer to Discharge Medication List. DISCHARGE INSTRUCTIONS: Follow-up in a week. I have been assigned to complete a discharge summary on this account, I was not involved with the patient's management. Jennifer Burrell NP Nov 02, 2018 14:04
== END 2018-11-01 12:15 | disposition home or self-care (01) | DRG 419 ==
LOC: EMR 01:07 → 3E 04:08 → EDBEDREQ 05:04
PROC: 0FT44ZZ Resection of Gallbladder, Percutaneous Endoscopic Approach (ICD-10-PCS; principal; 2018-10-30)
DX: K80.00 Calculus of gallbladder with acute cholecystitis without obstruction (principal); E11.9 Type 2 diabetes mellitus without complications; Z79.84 Long term (current) use of oral hypoglycemic drugs; I10 Essential (primary) hypertension
CPT/HCPCS: 36415; 74176; 76700; 80053; 81003; 82962; 83036; 83690; 85025; 93005; 94003; 94150; 96361; 96374; 96375; 96376; 99285; J1815; J2405; J2710